=== PATIENT | female | born 1985 | race Hispanic/Latino ===

== ENCOUNTER 2017-04-05 22:01 | Emergency (ER) | payer SELFPAY ==
[2017-04-05 22:27] VITALS: BP 128/80
== END 2017-04-05 22:45 | disposition left against medical advice (07) ==
LOC: ED 22:01
DX: R07.9 Chest pain, unspecified (principal); Z53.21 Procedure and treatment not carried out due to patient leaving prior to being seen by health care provider
CPT/HCPCS: 93005; 93010

== ENCOUNTER 2017-10-08 20:23 | Emergency (ER) | payer OTHER ==
--- NOTE | 2017-10-08 22:12 | Emergency Department Report ---
ED Psych HPI - General Chief Complaint: Psych Stated Complaint: PSYCH Time Seen by Provider: 10/08/17 21:50 Source: EMS Mode of arrival: Stretcher - History of Present Illness Initial Comments: Patient is 32 years old female history of schizophrenia brought by EMS after she was found in a manic phase in the street screaming. Patient is not answering question. Unable to obtain further history. MD Complaint: altered mental status - Related Data Home Medications Medication Instructions Recorded Confirmed Last Taken No Known Home Medications [No 10/01/13 10/01/13 Unknown Reported Home Medications] Allergies Allergy/AdvReac Type Severity Reaction Status Date / Time codeine AdvReac Nausea Verified 10/01/13 07:59 ED Review of Systems ROS: Stated complaint: PSYCH Other details as noted in HPI Comment: Unobtainable due to pts medical conditions ED Past Medical Hx - Past Medical History Hx Psychiatric Treatment: Yes (Anxiety) - Surgical History Hx Appendectomy: Yes Additional Surgical History: Ectopic Preg - Social History Smoking Status: Current Every Day Smoker Substance Use Type: Methamphetamines - Medications Home Medications: Home Medications Medication Instructions Recorded Confirmed Last Taken Type No Known Home Medications [No 10/01/13 10/01/13 Unknown History Reported Home Medications] ED Physical Exam - General Limitations: Altered Mental Status General appearance: alert, in no apparent distress, anxious - Head Head exam: Present: atraumatic, normocephalic, normal inspection - Eye Eye exam: Present: normal appearance, PERRL - ENT ENT exam: Present: normal exam - Neck Neck exam: Present: normal inspection - Respiratory Respiratory exam: Present: normal lung sounds bilaterally. Absent: respiratory distress, wheezes, rales, rhonchi, stridor, chest wall tenderness, accessory muscle use, decreased breath sounds, prolonged expiratory - Cardiovascular Cardiovascular Exam: Present: regular rate, normal rhythm, normal heart sounds - GI/Abdominal GI/Abdominal exam: Present: soft, normal bowel sounds. Absent: distended, tenderness, guarding, rebound, rigid, organomegaly, mass, bruit, pulsatile mass , hernia - Extremities Exam Extremities exam: Present: normal inspection, full ROM, normal capillary refill. Absent: tenderness, pedal edema, joint swelling, calf tenderness - Back Exam Back exam: Present: normal inspection. Absent: CVA tenderness (R), CVA tenderness (L) - Neurological Exam Neurological exam: Present: alert, oriented X3, CN II-XII intact, normal gait, reflexes normal. Absent: abnormal gait, motor sensory deficit - Skin Skin exam: Present: warm, intact, normal color. Absent: cyanosis, diaphoretic, erythema, urticaria, vesicles, petechiae, pallor, abrasion, ecchymosis ED Course Vital Signs 10/08/17 10/08/17 10/08/17 20:51 21:03 21:06 Temperature 98 F 98 F Pulse Rate 88 82 Respiratory 18 Rate Blood Pressure 101/53 101/53 O2 Sat by Pulse 99 98 98 Oximetry Critical care attestation.: If time is entered above; I have spent that time in minutes in the direct care of this critically ill patient, excluding procedure time. ED Disposition Clinical Impression: Acute psychosis Disposition: [id number]/TX-65 PSY HOSP/PSY UNIT Is pt being admited?: No Condition: Stable Referrals: PRIMARY CARE, [Primary Care Provider] - 3-5 Days
[2017-10-08 22:53] LABS: Basophils % (Auto) 0.7 % (0.0-1.8); Eosinophils % (Auto) 1.9 % (0.0-4.3); Hematocrit 37.4 % (30.3-42.9); Hemoglobin 12.9 gm/dl (10.1-14.3); Mean Corpuscular HGB Conc 34 % (30-34); Mean Corpuscular Hemoglobin 30 pg (28-32); Mean Corpuscular Volume 88 fl (79-97); Platelet Count 261 K/mm3 (140-440); Red Blood Count 4.28 M/mm3 (3.65-5.03); Red Cell Distribution Width 12.7 % (13.2-15.2)
[2017-10-08 23:15] LABS: Alanine Aminotransferase 24 units/L (7-56); Albumin 4.1 g/dL (3.9-5); Albumin/Globulin Ratio 1.7 %; Alkaline Phosphatase 72 units/L (35-129); Anion Gap 19 mmol/L; BUN/Creatinine Ratio 12; Blood Urea Nitrogen 7 mg/dL (7-17); Calcium 8.8 mg/dL (8.4-10.2); Carbon Dioxide 24 mmol/L (22-30); Chloride 102.9 mmol/L (98-107); Glucose 96 mg/dL (65-100); Potassium 3.2 mmol/L (3.6-5.0); Sodium 143 mmol/L (137-145); Total Protein 6.5 g/dL (6.3-8.2)
[2017-10-09 00:21] LABS: Urine Drugs of Abuse Note Disclamer
[2017-10-09 00:32] LABS: Bilirubin,Urine SM (Negative); Blood,Urine NEG (Negative); Ketones,Urine 20 mg/dL (Negative); Leukocyte Esterase,Urine NEG (Negative); Mucus,Urine 3+ /HPF; Nitrite,Urine NEG (Negative)
[2017-10-09] MEDS ORDERED: GEODON IM PRN (11:03)
[2017-10-09] MEDS ORDERED: GEODON PO SCH (12:00)
--- NOTE | 2017-10-09 14:02 | Consultation ---
History of Present Illness - Reason for Consult Consult date: 10/09/17 Reason for consult: Mental Health Evaluation Requesting physician: ERIN ALTMAN - Chief Complaint Chief complaint: "What happened to me" - History of Present Psychiatric Illness 32 y.o. white female presenting to [facility] for bizarre behavior. Today patient is emotional and anxious during the assessment. She stated that she have no idea how she ended up at the hospital. She stated that she was [facility] last Sunday after 6 months of incarceration. She stated that she went to her grandparents and hung out with friends. She stated that she was drinking "a fireball" Sunday (the last thing she remember). Per the staff, the patient was agitated on arrival. She denies a mental health dx. She denies recreational drug use, but positive for amphetamines and marijuana. She denies SI/HI's and AVH's. She denies excessive alcohol consumption (etoh). Medications and Allergies Allergies Allergy/AdvReac Type Severity Reaction Status Date / Time codeine AdvReac Nausea Verified 10/01/13 07:59 Home Medications Medication Instructions Recorded Confirmed Last Taken Type No Known Home Medications [No 10/01/13 10/01/13 Unknown History Reported Home Medications] Active Meds: Active Medications Ziprasidone (Geodon) 10 mg IM Q12H PRN PRN Reason: Agitation Last Admin: 10/09/17 11:44 Dose: 10 mg Past psychiatric history - Past Medical History Past Medical History: No medical history Past Surgical History: No surgical history - past Psychiatric treatment and history psychiatric treatment history: Denies a psy hx and a fam psy hx. - Social History Social history: lives with family Mental Status Exam - Vital signs Last Vital Signs Temp 97.8 F 10/09/17 08:41 Pulse 81 10/09/17 07:57 Resp 20 10/09/17 07:57 BP 111/75 10/09/17 07:57 Pulse Ox 97 10/09/17 07:57 - Exam Narrative exam: MSE: Appearance: emotional, disheveled Behavior: regular eye contact Speech: regular rate and tone Mood: anxious Affect: congruent to mood Thought Process: circumstantial Thought Content: denies SI/HI's and VH's Motor Activity: ambulatory Cognition: A/Ox3 Insight: limited Judgment: limited Results Result Diagrams: 10/08/17 22:10 10/08/17 22:10 Abnormal lab results 10/08/17 10/08/17 10/08/17 Range/Units 22:10 22:10 22:10 WBC 13.0 H (4.5-11.0) K/mm3 RDW 12.7 L (13.2-15.2) % [place] % (Auto) 9.0 H (0.0-7.3) % [place] # 1.2 H (0.0-0.8) K/mm3 Seg Neutrophils # 8.7 H (1.8-7.7) K/mm3 Potassium 3.2 L (3.6-5.0) mmol/L Creatinine 0.6 L (0.7-1.2) mg/dL Ur Specific [place] (1.003-1.030) Salicylates < 0.3 L (2.8-20.0) mg/dL 10/09/17 Range/Units 00:16 WBC (4.5-11.0) K/mm3 RDW (13.2-15.2) % [place] % (Auto) (0.0-7.3) % [place] # (0.0-0.8) K/mm3 Seg Neutrophils # (1.8-7.7) K/mm3 Potassium (3.6-5.0) mmol/L Creatinine (0.7-1.2) mg/dL Ur Specific [place] 1.035 H (1.003-1.030) Salicylates (2.8-20.0) mg/dL All other labs normal. Assessment and Plan Assessment and plan: Impression: Substance Induced Psychosis. Today patient is emotional and anxious during the assessment. Positive for marijuana and amphetamines. DDx: R/O Schizophrenia, R/O Bipolar DO, R/O Substance Use DO Recommendation/Plan: Continue 1013 and gather collateral to determine proper dispo and treatment. Start Vistaril 25 mg PO Q6hrs PRN for anxiety.
[2017-10-09] MEDS ORDERED: VISTARIL PO PRN (14:11)
[2017-10-10 12:43] VITALS: BP 105/39
--- NOTE | 2017-10-10 16:24 | Progress Note ---
Subjective - Reason for Consult Reason for consult: substance induced psychosis - Chief Complaint Chief complaint: Today the patient denies any symptoms of psychosis. Furthermore, patient notes that she had abuse copious amounts of drugs and alcohol which led to her hospital physician. She notes that she has a supportive family and they're willing to come pick her up. At the current time she is denying any symptoms of depression and denies desire to harm herself. General Appearance: casually dressed, no acute distress Sensorium/Consciousness: alert and responding to external stimuli; clear Orientation: person, place, time and situation Eye Contact: limited Attitude / Behavior: cooperative Psychomotor & Musculoskeletal Activity: WNL Mood: ok Affect: full range Speech / Language: fluent, with normal rate/rhythm/tone Thought Processes: organized, logical, linear Thought Content: no SI/HI Perception: no AVH Insight: improved Judgement: improved Capacity for ADLs: independent Plan: Rescind 1013 Recommend outpatient follow-up for mental health services so patient can get education on abstaining from illicit substances. Mental Status Exam - Vital signs Last Vital Signs Temp 98.8 F 10/10/17 12:41 Pulse 77 10/10/17 12:41 Resp 16 10/10/17 12:43 BP 105/39 10/10/17 12:41 Pulse Ox 97 10/10/17 12:43
--- NOTE | 2017-10-10 17:57 | Emergency Department Report ---
Blank Doc - Documentation Documentation: I was asked to evaluate Jenna Dsouza for possible discharge. Patient is alert oriented in time place and person. She denied any auditory hallucination or visual hallucination, denied denies suicidal or homicidal ideation. Patient has been assessed by mental health in 1013 has been rescinded patient will be discharged home.
== END 2017-10-10 18:10 ==
LOC: ED 20:23
DX: F20.9 Schizophrenia, unspecified (principal); F41.9 Anxiety disorder, unspecified; F17.200 Nicotine dependence, unspecified, uncomplicated; F15.10 Other stimulant abuse, uncomplicated
CPT/HCPCS: 36415; 80053; 80307; 81001; 84703; 85025; 96372; 99284; G0480; J3486; 80320; Q0177

== ENCOUNTER 2018-07-23 18:33 | Emergency (ER) | payer OTHER ==
[2018-07-23 20:22] VITALS: BP 137/68
[2018-07-23] MEDS ORDERED: ASPIRIN PO ONE (20:22)
[2018-07-23 21:04] LABS: Basophils # (Auto) 0.1 K/mm3 (0.0-0.1); Eosinophils # (Auto) 0.3 K/mm3 (0.0-0.4); Eosinophils % (Auto) 2.4 % (0.0-4.3); Hematocrit 39.7 % (30.3-42.9); Hemoglobin 13.2 gm/dl (10.1-14.3); Lymphocytes # (Auto) 2.6 K/mm3 (1.2-5.4); Lymphocytes % (Auto) 17.9 % (13.4-35.0); Mean Corpuscular HGB Conc 33 % (30-34); Mean Corpuscular Hemoglobin 30 pg (28-32); Mean Corpuscular Volume 89 fl (79-97); Monocytes # (Auto) 1.3 K/mm3 (0.0-0.8); Platelet Count 279 K/mm3 (140-440); Red Blood Count 4.44 M/mm3 (3.65-5.03); Red Cell Distribution Width 13.4 % (13.2-15.2)
[2018-07-23 21:22] LABS: BUN/Creatinine Ratio 13; Blood Urea Nitrogen 8 mg/dL (7-17); Calcium 9.1 mg/dL (8.4-10.2); Hemolysis Index 4
== END 2018-07-24 00:20 | disposition left against medical advice (07) ==
LOC: ED 18:33
DX: R19.5 Other fecal abnormalities (principal); R11.10 Vomiting, unspecified; Z53.21 Procedure and treatment not carried out due to patient leaving prior to being seen by health care provider
CPT/HCPCS: 36415; 80048; 84484; 85025